=== PATIENT | male | born 1975 | race Caucasian/White ===

== ENCOUNTER 2016-11-02 21:19 | Emergency (ER) | payer OTHER ==
[~2016-11-02] VITALS: Ht 188 cm; Wt 81.8 kg
[2016-11-02 21:33] VITALS: Ht 188 cm; Wt 81.8 kg
--- NOTE | 2016-11-02 21:38 | ERA ---
ER Documentation Chief Complaint Date/Time DATE: 11/02/16 TIME: 21:37 Chief Complaint hiccups HPI The patient is a 41-year-old male, presenting to the ER because of intermittent hiccups for 1 day. He has similar symptoms previously. He complains of bilateral chest discomfort and abdominal discomfort when he had the hiccups. He does not have any hiccup now and denies any chest pain or abdominal pain. He has history of GERD and taking PPI. He denies fever, chills, neck pain, chest pain, dyspnea, abdominal pain, vomiting, dysuria, diarrhea, constipation. He does not smoke nor drink Past medical history: GERD Past surgical history: Back surgery many years ago ROS All systems reviewed and are negative except as per history of present illness. Medications Home Meds Active Scripts Diphenhydramine Hcl* (Benadryl*) 50 Mg Cap, 50 MG PO Q8, #14 CAP Prov:BRENDA TELLEZ MD 11/02/16 Chlorpromazine Hcl* (Chlorpromazine Hcl*) 25 Mg Tablet, 25 MG PO TID, #14 TAB Prov:BRENDA TELLEZ MD 11/02/16 Allergies Allergies: Coded Allergies: No Known Allergy (Unverified , 11/02/16) Physical Exam Vitals Vital Signs Date Time Temp Pulse Resp B/P Pulse Ox O2 Delivery O2 Flow Rate FiO2 11/02/16 21:33 98.0 59 14 118/80 92 Physical Exam Const: No acute distress. Head: Atraumatic. Eyes: Normal Conjunctiva. ENT: Normal External Ears, Nose and Mouth. Neck: Full range of motion. No meningismus. Resp: Clear to auscultation bilaterally. Cardio: Regular rate and rhythm, no murmurs. Abd: Soft, non distended, normal bowel sounds, non tender. Skin: No petechiae or rashes. Back: No midline or flank tenderness. Ext: No cyanosis, or edema. Neur: Awake and alert. No focal deficit Psych: Normal Mood and Affect. Procedures/MDM EKG: Read by emergency physician Rate/Rhythm: Sinus bradycardia 58 beats/min with sinus arrhythmia QRS, ST, T-waves: No ST elevation, no T inversion Impression: Abnormal EKG MEDICAL MAKING DECISION: The patient is a 41-year-old male, presenting to the ER because of recurrent hiccups of unclear etiology. The differential diagnoses considered include but are not limited to gastric distention, overeating, GERD, GI malignancy, MS Departure Diagnosis: Primary Impression: Hiccups Condition: Good Comments He was discharged with Thorazine and Benadryl I discussed the findings with the patient. I advised the patient to follow-up with the primary physician in about 1-2 days, sooner if needed and return if any concern. BRENDA TELLEZ MD Nov 02, 2016 21:38
[2016-11-02] MEDS ORDERED: CHLO25TA14 PO (22:07)
[2016-11-02] MEDS ORDERED: BEN50 PO (22:08)
== END 2016-11-02 22:30 | disposition home or self-care (01) ==
LOC: E/R 21:19
DX: R06.6 Hiccough (principal); R40.2252 Coma scale, best verbal response, oriented, at arrival to emergency department; R00.1 Bradycardia, unspecified; R40.2142 Coma scale, eyes open, spontaneous, at arrival to emergency department; R40.2362 Coma scale, best motor response, obeys commands, at arrival to emergency department; Z87.891 Personal history of nicotine dependence
CPT/HCPCS: 93005

== ENCOUNTER 2018-01-05 06:37 | Emergency (ER) | END 2018-01-05 09:07 | disposition home or self-care (01) ==